=== PATIENT | male | born 1955 | race Caucasian/White ===

== ENCOUNTER 2020-06-26 10:51 | Day surgery (SDC) | payer OTHER, SELFPAY ==
[2020-06-23 10:03] VITALS: BMI 26.1
--- NOTE | 2020-06-24 14:01 | P.CONAN_ITS ---
HPI - Anesthesia Eval Consult details Narrative: 65yo M for Colonoscopy [facility] Past Medical History Medical History Elevated cholesterol HTN (hypertension) Surgical History Surgical History H/O colonoscopy Hx of arthroscopic knee surgery Hx of hemorrhoidectomy Social History Social History Smoking Status: Former smoker Smoking Quit Date: 2019 Advance Directives Information Provided: No Meds Allergies Allergy/AdvReac Type Severity Reaction Status Date / Time No Known Allergies Allergy Verified 06/26/20 11:03 Home Medications Medication Instructions Recorded Confirmed Last Taken Type atorvastatin 40 mg PO DAILY 06/23/20 06/23/20 Unknown History hydrochlorothiazide 12.5 mg PO DAILY 06/23/20 06/23/20 Unknown History irbesartan 300 mg PO DAILY 06/23/20 06/23/20 06/26/20 History 300 mg trazodone 100 mg PO BEDTIME 06/23/20 06/23/20 Unknown History Exam Exam Date and Time: June 24, 2020 1401 Height,Weight and Vital Signs: Height 5 ft 10 in Weight 82.554 kg Assessment and Plan Assessment Anesthesia Assessment: Chart Reviewed
[2020-06-26 11:19] VITALS: BP 134/81; PULSE 55; RESP 16; TEMP 36.6; O2SAT 96
[2020-06-26] MEDS: Lactated Ringers 1,000 ML 100 ML IVCONT (11:21)
--- NOTE | 2020-06-26 11:54 | MHC.SHP ---
Pre-Procedural Eval Section B Chief Complaint: hx of colonic polyps Details of Present Illness: screening Relevant Family History (Specify if Yes): No Relevant Social History: None Present Medications: None Medical History: No relevant PMH Allergies: Allergies Allergy/AdvReac Type Severity Reaction Status Date / Time No Known Allergies Allergy Verified 06/26/20 11:03 Review of Systems Sugical H&P ROS: Negative: Constitution, Cardiovascular, Respiratory, Neurological, Psychiatric, Hem-Onc, Allergic/Immunologic, Gastrointestinal, Genitourinary, Musculoskeletal, Integumentary, Endocrine and Eyes/Ears/Nose/Throat Exam Surgical H&P Exam: Normal: HEENT, Normal: Heart, Normal: Lungs, Normal: Extremities, Normal: Abdomen, Normal: Skin and Normal: Neurological Plan Diagnosis/Plan: Unchanged I have reviewed the history and physical and performed a pertinent physical examination on my patient. No changes have occurred unless specified.
[2020-06-26 12:15] VITALS: BP 107/74; PULSE 73; RESP 18; TEMP 36.4; O2SAT 96
--- NOTE | 2020-06-26 12:16 | PM.OP ---
Brief Operative Note Date of Service: 06/26/20 Pre-op diagnosis: screening Post-op diagnosis: same Procedure: colonoscopy Surgeon: Scotty Hernandez Anesthesia: MAC Estimated blood loss (mL): 0 Pathology: none sent Condition: stable Disposition: PACU
--- NOTE | 2020-06-26 12:32 | OP_ITS ---
SURGEON: Scotty Hernandez MD INDICATIONS: Colon cancer screening and prior history of colon polyps. PREOPERATIVE DIAGNOSIS: POSTOPERATIVE DIAGNOSIS: PROCEDURE PERFORMED: Colonoscopy to the terminal ileum. ESTIMATED BLOOD LOSS: COMPLICATIONS: ANESTHESIA: ASSISTANTS: SPECIMENS: MEDICATIONS: Monitored anesthesia care. DESCRIPTION OF PROCEDURE: History and physical performed. The risks and benefits of the procedure were explained to the patient. Informed consent was obtained. The patient was placed in the left lateral decubitus position. A digital rectal exam was performed and was found to be normal. The Olympus pediatric video colonoscope was introduced into the rectum and advanced to the cecum without difficulty. The cecum was identified by transillumination, palpation, and identification of ileocecal valve. Examination was performed and the scope was removed. He tolerated the procedure well and was taken to recovery area in stable condition. FINDINGS: The terminal ileum was examined and appeared normal. The visualized colonic mucosa was normal. The quality of the prep was good. No polyps were identified. In the sigmoid, there was mild diverticulosis. Retroflexed examination showed small internal hemorrhoids. IMPRESSION: Negative screening colonoscopy. RECOMMENDATION: Consider repeat examination in 5 years because of prior history of colon polyps. MD ARELIS Neal/FCO / [id number]
[2020-06-26 12:33] VITALS: BP 126/88; PULSE 16; RESP 16; TEMP 36.4; O2SAT 99
== END 2020-06-26 13:34 | disposition home or self-care (01) ==
PROVIDERS: Visit Provider Internal Medicine Gastroenterology
PROC: 0DJD8ZZ Inspection of Lower Intestinal Tract, Via Natural or Artificial Opening Endoscopic (ICD-10-PCS; CPT 45378; principal; 2020-06-26 12:10)
DX: Z12.11 Encounter for screening for malignant neoplasm of colon (principal); Z86.010 Personal history of colon polyps; K57.30 Diverticulosis of large intestine without perforation or abscess without bleeding; K64.8 Other hemorrhoids; I10 Essential (primary) hypertension; Z79.899 Other long term (current) drug therapy; Z87.891 Personal history of nicotine dependence
CPT/HCPCS: 45378

== ENCOUNTER 2021-11-08 08:58 | Outpatient (REF) | payer OTHER, SELFPAY ==
[2021-11-08 09:22] LABS: COVID-19 Test Negative (Negative)
== END 2021-11-08 08:59 | disposition home or self-care (01) ==
LOC: HO.LAB 08:58
PROVIDERS: Visit Provider Internal Medicine
DX: Z20.822 Contact with and (suspected) exposure to COVID-19 (principal)
CPT/HCPCS: 87635; C9803

== ENCOUNTER 2021-12-08 10:51 | Outpatient (REF) | payer OTHER, SELFPAY ==
[2021-12-08 13:45] LABS: Hemoglobin 14.3 g/dl (14.0-18.0); Mean Corpuscular Hemoglobin 31.8 pg (27.0-33.0); Mean Corpuscular Volume 93.3 fL (80.0-98.0); Mean Platelet Volume 9.4 fL (9.4-12.4); Platelet Count 377 X10*3/uL (160-400); Red Cell Distribution Width 11.9 % (11.0-16.0)
[2021-12-08 14:23] LABS: TSH reflex Free T4 1.36 uIU/mL (0.32-4.0)
[2021-12-10 14:47] LABS: Immunoglobulin A 191 mg/dL (70-320)
[2021-12-17 15:46] LABS: Transglutaminase Ab IgG 1.3 U/mL
== END 2021-12-08 10:52 | disposition home or self-care (01) ==
LOC: HO.10HDL 10:51
PROVIDERS: Visit Provider Internal Medicine Gastroenterology
DX: R19.7 Diarrhea, unspecified (principal)
CPT/HCPCS: 36415; 82784; 84443; 85027; 86364

== ENCOUNTER 2021-12-09 13:04 | Outpatient (REF) | payer OTHER, SELFPAY ==
[2021-12-09 15:55] LABS: Adenovirus F 40/41 Not Detected (Not Detect.); Astrovirus Not Detected (Not Detect.); Campylobacter Not Detected (Not Detect.); Cryptosporidium Not Detected (Not Detect.); Cyclospora cayetanensis Not Detected (Not Detect.); E. coli EAEC Not Detected (Not Detect.); E. coli EPEC Not Detected (Not Detect.); E. coli ETEC Not Detected (Not Detect.); E. coli STEC Not Detected (Not Detect.); Entamoeba histolytica Not Detected (Not Detect.); Giardia lamblia Not Detected (Not Detect.); Norovirus GI/GII Not Detected (Not Detect.); Plesiomonas shigelloides Not Detected (Not Detect.); Rotavirus A Not Detected (Not Detect.); Salmonella Not Detected (Not Detect.); Sapovirus Not Detected (Not Detect.); Shigella sp./EIEC Not Detected (Not Detect.); Vibrio Not Detected (Not Detect.); Vibrio Cholerae Not Detected (Not Detect.); Yersinia enterocolitica Not Detected (Not Detect.)
[2021-12-09 19:00] LABS: Leukocytes Stool Qualitative NEGATIVE (NEGATIVE)
== END 2021-12-09 13:05 | disposition home or self-care (01) ==
LOC: HO.10HDLNP 13:04
PROVIDERS: Visit Provider Internal Medicine Gastroenterology
DX: R19.7 Diarrhea, unspecified (principal)
CPT/HCPCS: 87177; 87209; 87507; 89055